=== PATIENT | female | born 1995 | race Two or more races ===

== ENCOUNTER 2023-02-04 12:36 | Emergency (ER) | payer SELFPAY ==
[2023-02-04] MEDS ORDERED: Ketorolac 30 MG/ML SDV IVPUSH ONE (13:01)
[2023-02-04] MEDS ORDERED: Ondansetron 4 MG/2 ML SDV IVPUSH ONE (13:01)
[2023-02-04] MEDS ORDERED: Sodium Chloride 0.9% 1,000 ML IV ONE (13:01)
[2023-02-04 13:57] LABS: CARBON DIOXIDE,CO2 25.4 mmol/L (21.0-32.0); POTASSIUM,K 3.6 mmol/L (3.5-5.1)
== END 2023-02-04 16:04 | disposition home or self-care (01) ==
LOC: MW.ED 12:36
DX: R10.2 Pelvic and perineal pain (principal); R10.31 Right lower quadrant pain
CPT/HCPCS: 36415; 76856; 80053; 81001; 81025; 83690; 83735; 85025; 99284; J1885; J2405; J7030